=== PATIENT | female | born 1970 | race African-American/Black ===

== ENCOUNTER 2021-02-25 11:36 | Inpatient (IN) | payer OTHER ==
[2021-02-25] MEDS ORDERED: Furosemide 40 MG/4 ML VIAL ONE (12:10)
[2021-02-25 12:41] LABS: ALT (SGPT) 10 U/L (8-55); AST (SGOT) 16 U/L (5-34); Albumin 3.4 g/dL (3.5-5.0); Alkaline Phosphatase 80 U/L (40-110); Anion Gap 12 mmol/L (10-20); BUN (Urea Nitrogen) 37 mg/dL (7.0-18.7); Calc. Creatinine Clearance 0 mL/min (70-130); Calcium 8.3 mg/dL (7.8-10.44); Carbon Dioxide 33 mmol/L (22-29); Chloride 100 mmol/L (98-107); Globulin 3.7 g/dL (2.4-3.5); Glucose 104 mg/dL (70-105); Potassium 4.5 mmol/L (3.5-5.1); Protein, Total 7.1 g/dL (6.0-8.3); Sodium 140 mmol/L (136-145)
[2021-02-25 12:41] LABS: Actual Bicarbonate (HCO3a) 33.3 mEq/L (22-28); Base Excess (BEa) 4.3 mEq/L (-2.0 to +3.0); CO2 Tension 72.6 mmHg (35.0-45.0); Calcium, Ionized (arterial) 1.21 mmol/L (1.12-1.30); Carboxyhemoglobin (COHb) 2.2 gm% (0.0-3.0); Hemoglobin (Hb) 13.3 g/dL (12.0-16.0); O2 Tension (PaO2), arterial 84.3 mmHg (80.0-100.0); Potassium - ABG Lab 4.3 mmol/L (3.70-5.30); Puncture Site RBA; pH, Arterial 7.28 (7.35-7.45)
[2021-02-25 12:45] LABS: Hemoglobin 12.3 g/dL (12.0-15.5); Mean Corpuscular HGB CONC 25.3 g/dL (32.0-36.0); Mean Corpuscular Hemoglobin 20.7 pg (27.0-33.0); Mean Platelet Volume 8.8 fl (7.4-10.4); Platelet Count 213 10x3/uL (150-450); RBC Distribution Width 26.7 % (11.5-14.5); Red Blood Cell (RBC) Count 5.93 10x6/uL (3.90-5.03)
[2021-02-25 13:02] LABS: #Eosinphils 0.1 10x3/uL (0.0-0.5); #Monocytes 0.7 10x3/uL (0.0-1.1); #Neutrophils 3.7 10x3/uL (1.5-8.4); %Basophils 0.5 % (0.0-2.0); %Lymphocytes 25.4 % (18.0-47.0); %Monocytes 11.1 % (0.0-10.0); %Neutrophils 61.7 % (40.0-75.0)
[2021-02-25 13:03] LABS: Platelet Morphology Comment Appears Adequate
[2021-02-25 13:06] LABS: Anisocytosis MODERATE=16-30 cells (100X) (0-5/hpf); Macrocytosis SLIGHT = 6-15 cells (100X) (0-5/hpf); Microcytosis SLIGHT = 6-15 cells (100X) (0-5/hpf); Target Cells SLIGHT = 2-5 cells (100X) (0-1/hpf)
[2021-02-25 13:13] LABS: SARS-CoV-2 NAA Rapid Test Not Detected (NotDetected)
[2021-02-25] MEDS ORDERED: Dextrose 50% Abboject 50 ML SYRINGE SLOW IVP PRN (14:19)
[2021-02-25] MEDS ORDERED: HumaLOG 300 UNITS/3 ML VIAL SC PRN ×2 (14:19)
[2021-02-25] MEDS ORDERED: Dextrose 5% in Water 1,000 ML IV PRN (14:19)
[2021-02-25] MEDS ORDERED: Metolazone 5 MG TAB PO SCH (15:30)
[2021-02-25] MEDS ORDERED: Furosemide 40 MG/4 ML VIAL IVP SCH (16:00)
[2021-02-25] MEDS ORDERED: Metolazone 2.5 MG TAB PO SCH (16:15)
[2021-02-25 19:30] LABS: Base Excess (BEa) 3.8 mEq/L (-2.0 to +3.0); CO2 Tension 65.8 mmHg (35.0-45.0); Calcium, Ionized (arterial) 1.18 mmol/L (1.12-1.30); Hemoglobin (Hb) 13.3 g/dL (12.0-16.0); O2 Tension (PaO2), arterial 100.2 mmHg (80.0-100.0); Potassium - ABG Lab 4.2 mmol/L (3.70-5.30); Puncture Site LRA; pH, Arterial 7.31 (7.35-7.45)
[2021-02-25] MEDS: Atorvastatin Calcium 20 MG TAB PO SCH (21:50)
[2021-02-26] MEDS ORDERED: diphenhydrAMINE 50 MG/ML VIAL IVP SCH (03:30)
[2021-02-26 04:36] LABS: Cardiac Risk 3.1 (Less than 4.5); Cholesterol 85 mg/dl (< 200 Desired); HDL Cholesterol 27 mg/dL (>60 Neg Risk); LDL Cholesterol, Calculated 47 mg/dL; Triglycerides 55 mg/dL (Less than 150); Uric Acid 8.5 mg/dL (2.6-6.0)
[2021-02-26 05:06] LABS: #Eosinphils 0.1 10x3/uL (0.0-0.5); #Monocytes 0.5 10x3/uL (0.0-1.1); #Neutrophils 3.1 10x3/uL (1.5-8.4); %Basophils 0.4 % (0.0-2.0); %Eosinophils 1.7 % (0.0-6.0); %Lymphocytes 19.4 % (18.0-47.0); %Neutrophils 67.1 % (40.0-75.0); Hemoglobin 12.2 g/dL (12.0-15.5); Mean Corpuscular HGB CONC 25.3 g/dL (32.0-36.0); Mean Corpuscular Hemoglobin 20.9 pg (27.0-33.0); Mean Corpuscular Volume 82.7 fl (81.6-98.3); Mean Platelet Volume 9.6 fl (7.4-10.4); Platelet Count 197 10x3/uL (150-450); RBC Distribution Width 26.4 % (11.5-14.5); Red Blood Cell (RBC) Count 5.84 10x6/uL (3.90-5.03); White Blood Cell (WBC) Count 4.7 10x3/uL (3.5-10.5)
[2021-02-26] MEDS: Furosemide 40 MG/4 ML VIAL SLOW IVP SCH ×2 (05:49→13:44)
[2021-02-26] MEDS ORDERED: Furosemide 40 MG/4 ML VIAL SLOW IVP SCH (06:00)
[2021-02-26] MEDS ORDERED: Enoxaparin Sodium 30 MG/0.3 ML SYRINGE ONE (07:11)
[2021-02-26] MEDS ORDERED: Metolazone 5 MG TAB PO SCH (08:30)
[2021-02-26] MEDS: Metolazone 2.5 MG TAB PO SCH (08:39)
[2021-02-26] MEDS: Famotidine 20 MG TAB PO SCH (08:40)
[2021-02-26] MEDS: Enoxaparin Sodium 30 MG/0.3 ML SYRINGE SC SCH (08:40)
[2021-02-26] MEDS: Allopurinol 100 MG TAB PO SCH (08:40)
[2021-02-26] MEDS: Aspirin Chewable 81 MG TAB PO SCH (08:40)
[2021-02-26] MEDS ORDERED: Losartan 25 MG TAB PO SCH (09:00)
[2021-02-26 11:30] LABS: Hemoglobin A1c 6.1 % (4.0-6.0)
[2021-02-26 11:58] LABS: Potassium, Urine 21.7 mmol/L
[2021-02-26 18:35] LABS: ALV-art Gradient 77.505 mmHg (0-20); Actual Bicarbonate (HCO3a) 37.9 mEq/L (22-28); Base Excess (BEa) 7.8 mEq/L (-2.0 to +3.0); CO2 Tension 85.9 mmHg (35.0-45.0); Carboxyhemoglobin (COHb) 2.2 gm% (0.0-3.0); Hemoglobin (Hb) 13.1 g/dL (12.0-16.0); O2 Tension (PaO2), arterial 71.8 mmHg (80.0-100.0); Potassium - ABG Lab 4.2 mmol/L (3.70-5.30); Puncture Site RBA; pH, Arterial 7.26 (7.35-7.45)
[2021-02-26] MEDS: Atorvastatin Calcium 20 MG TAB PO SCH (20:45)
[2021-02-26] MEDS ORDERED: diphenhydrAMINE 25 MG CAP PO SCH (21:30)
[2021-02-27 05:22] LABS: ALT (SGPT) 11 U/L (8-55); AST (SGOT) 15 U/L (5-34); Albumin 3.1 g/dL (3.5-5.0); Alkaline Phosphatase 77 U/L (40-110); BUN (Urea Nitrogen) 35 mg/dL (7.0-18.7); Bilirubin, Total 1.1 mg/dL (0.2-1.2); Calc. Creatinine Clearance 87 mL/min (70-130); Calcium 8.7 mg/dL (7.8-10.44); Globulin 3.8 g/dL (2.4-3.5); Glucose 84 mg/dL (70-105); Protein, Total 6.9 g/dL (6.0-8.3)
[2021-02-27 05:29] LABS: Anion Gap 14 mmol/L (10-20); Carbon Dioxide 36 mmol/L (22-29); Chloride 95 mmol/L (98-107); Potassium 4.4 mmol/L (3.5-5.1); Sodium 141 mmol/L (136-145)
[2021-02-27] MEDS: Furosemide 40 MG/4 ML VIAL SLOW IVP SCH ×2 (05:57→14:26)
[2021-02-27 06:27] LABS: #Eosinphils 0.1 10x3/uL (0.0-0.5); #Monocytes 0.5 10x3/uL (0.0-1.1); #Neutrophils 2.9 10x3/uL (1.5-8.4); %Basophils 0.6 % (0.0-2.0); %Eosinophils 2.5 % (0.0-6.0); %Lymphocytes 25.1 % (18.0-47.0); %Monocytes 10.6 % (0.0-10.0); %Neutrophils 60.8 % (40.0-75.0); Hemoglobin 12.4 g/dL (12.0-15.5); Mean Corpuscular HGB CONC 25.1 g/dL (32.0-36.0); Mean Corpuscular Hemoglobin 20.8 pg (27.0-33.0); Mean Corpuscular Volume 82.9 fl (81.6-98.3); Mean Platelet Volume 9.2 fl (7.4-10.4); Platelet Count 195 10x3/uL (150-450); RBC Distribution Width 26.5 % (11.5-14.5); Red Blood Cell (RBC) Count 5.97 10x6/uL (3.90-5.03); White Blood Cell (WBC) Count 4.7 10x3/uL (3.5-10.5)
[2021-02-27 06:28] LABS: Anisocytosis MARKED = >30 cells (100X) (0-5/hpf)
[2021-02-27 06:29] LABS: Microcytosis SLIGHT = 6-15 cells (100X) (0-5/hpf); Poikilocytosis SLIGHT = 6-15 cells (100X) (0-5/hpf)
[2021-02-27 06:30] LABS: Hypochromia SLIGHT = 6-15 cells (100X) (0-5/hpf)
[2021-02-27 06:37] LABS: Macrocytosis MARKED = >30 cells (100X) (0-5/hpf); Ovalocytes SLIGHT = 2-5 cells (100X) (0-1/hpf); Target Cells SLIGHT = 2-5 cells (100X) (0-1/hpf)
[2021-02-27 06:38] LABS: Large Platelets SLIGHT; Platelet Clumps SLIGHT
[2021-02-27 06:40] LABS: Platelet Morphology Comment Appears Adequate
[2021-02-27] MEDS: Enoxaparin Sodium 30 MG/0.3 ML SYRINGE SC SCH (08:43)
[2021-02-27] MEDS: Metolazone 2.5 MG TAB PO SCH (08:46)
[2021-02-27] MEDS: Famotidine 20 MG TAB PO SCH (08:46)
[2021-02-27] MEDS: Allopurinol 100 MG TAB PO SCH (08:46)
[2021-02-27] MEDS: Aspirin Chewable 81 MG TAB PO SCH (08:46)
[2021-02-27 09:04] LABS: Actual Bicarbonate (HCO3a) 42.2 mEq/L (22-28); Base Excess (BEa) 12.1 mEq/L (-2.0 to +3.0); CO2 Tension 87.6 mmHg (35.0-45.0); Calcium, Ionized (arterial) 1.27 mmol/L (1.12-1.30); Carboxyhemoglobin (COHb) 1.8 gm% (0.0-3.0); Hemoglobin (Hb) 13.1 g/dL (12.0-16.0); O2 Tension (PaO2), arterial 91.2 mmHg (80.0-100.0); Potassium - ABG Lab 4.2 mmol/L (3.70-5.30); Puncture Site RRA; RapidComm Collect By EA
[2021-02-27] MEDS: Atorvastatin Calcium 20 MG TAB PO SCH (20:18)
[2021-02-28] MEDS: Aspirin Chewable 81 MG TAB PO SCH (08:22)
[2021-02-28] MEDS: Enoxaparin Sodium 30 MG/0.3 ML SYRINGE SC SCH (08:23)
[2021-02-28] MEDS: Allopurinol 100 MG TAB PO SCH (08:23)
[2021-02-28] MEDS: Famotidine 20 MG TAB PO SCH (08:24)
[2021-02-28] MEDS: Furosemide 20 MG TAB PO SCH ×2 (08:25→15:28)
[2021-02-28] MEDS: Empagliflozin 10 MG TAB PO SCH (08:28)
[2021-02-28] MEDS: Metolazone 2.5 MG TAB PO SCH (10:18)
[2021-02-28] MEDS: Atorvastatin Calcium 20 MG TAB PO SCH (21:28)
[2021-03-01 06:10] LABS: #Eosinphils 0.1 10x3/uL (0.0-0.5); #Monocytes 0.7 10x3/uL (0.0-1.1); #Neutrophils 3.3 10x3/uL (1.5-8.4); %Basophils 0.4 % (0.0-2.0); %Eosinophils 2.2 % (0.0-6.0); %Lymphocytes 21.9 % (18.0-47.0); %Monocytes 13.3 % (0.0-10.0); Hemoglobin 11.5 g/dL (12.0-15.5); Mean Corpuscular HGB CONC 25.4 g/dL (32.0-36.0); Mean Corpuscular Hemoglobin 20.9 pg (27.0-33.0); Mean Corpuscular Volume 82.2 fl (81.6-98.3); Platelet Count 187 10x3/uL (150-450); RBC Distribution Width 25.2 % (11.5-14.5); White Blood Cell (WBC) Count 5.4 10x3/uL (3.5-10.5)
[2021-03-01 06:18] LABS: BUN (Urea Nitrogen) 27 mg/dL (7.0-18.7); Calc. Creatinine Clearance 106 mL/min (70-130); Calcium 9.2 mg/dL (7.8-10.44); Glucose 87 mg/dL (70-105)
[2021-03-01] MEDS: Acetaminophen 325 MG TAB PO PRN ×2 (06:24→21:07)
[2021-03-01 06:25] LABS: Anion Gap 19 mmol/L (10-20); Carbon Dioxide 37 mmol/L (22-29); Chloride 88 mmol/L (98-107); Potassium 4.2 mmol/L (3.5-5.1); Sodium 140 mmol/L (136-145)
[2021-03-01] MEDS: Aspirin Chewable 81 MG TAB PO SCH (09:31)
[2021-03-01] MEDS: Furosemide 20 MG TAB PO SCH ×2 (09:31→19:31)
[2021-03-01] MEDS: Allopurinol 100 MG TAB PO SCH (09:31)
[2021-03-01] MEDS: Famotidine 20 MG TAB PO SCH (09:31)
[2021-03-01] MEDS: Enoxaparin Sodium 30 MG/0.3 ML SYRINGE SC SCH (09:32)
[2021-03-01] MEDS: Empagliflozin 10 MG TAB PO SCH (10:17)
[2021-03-01] MEDS: Atorvastatin Calcium 20 MG TAB PO SCH (21:01)
[2021-03-01] MEDS: diphenhydrAMINE 25 MG CAP PO PRN (21:07)
[2021-03-02 00:30] LABS: Bilirubin Neg (Negative); Blood, Urine 10 (Negative); Clarity Clear (Clear); Glucose, Urine (Dipstick) 100 mg/dL (Negative); Ketone, Urine Negative (Negative); Leukocyte Negative (Negative); Nitrite Positive (Negative); Protein, Urine (Dipstick) Negative (Neg-Trace); Specific Gravity, Urine 1.005 (1.002-1.036); Urobilinogen Normal mg/dL (Less than 2)
[2021-03-02 05:45] VITALS: BMI 53.8
[2021-03-02 06:21] LABS: #Eosinphils 0.1 10x3/uL (0.0-0.5); #Monocytes 0.6 10x3/uL (0.0-1.1); #Neutrophils 2.9 10x3/uL (1.5-8.4); %Basophils 0.7 % (0.0-2.0); %Lymphocytes 15.9 % (18.0-47.0); %Monocytes 13.6 % (0.0-10.0); %Neutrophils 66.6 % (40.0-75.0); BUN (Urea Nitrogen) 23 mg/dL (7.0-18.7); Calc. Creatinine Clearance 102 mL/min (70-130); Calcium 9.3 mg/dL (7.8-10.44); Glucose 85 mg/dL (70-105); Hemoglobin 11.8 g/dL (12.0-15.5); Mean Corpuscular HGB CONC 24.4 g/dL (32.0-36.0); Mean Corpuscular Hemoglobin 20.4 pg (27.0-33.0); Mean Corpuscular Volume 83.6 fl (81.6-98.3); Mean Platelet Volume 9.7 fl (7.4-10.4); Platelet Count 210 10x3/uL (150-450); RBC Distribution Width 25.3 % (11.5-14.5); Red Blood Cell (RBC) Count 5.79 10x6/uL (3.90-5.03); White Blood Cell (WBC) Count 4.3 10x3/uL (3.5-10.5)
[2021-03-02 06:28] LABS: Anion Gap 17 mmol/L (10-20); Chloride 83 mmol/L (98-107); Potassium 3.6 mmol/L (3.5-5.1); Sodium 141 mmol/L (136-145)
[2021-03-02 06:32] LABS: Carbon Dioxide 45 mmol/L (22-29)
[2021-03-02 09:13] LABS: Clarity Clear (Clear); Glucose, Urine (Dipstick) 100 mg/dL (Negative); Ketone, Urine Negative (Negative); Leukocyte Negative (Negative); Nitrite Positive (Negative); Protein, Urine (Dipstick) Negative (Neg-Trace); Specific Gravity, Urine 1.005 (1.002-1.036); Urobilinogen Normal mg/dL (Less than 2)
[2021-03-02 09:14] LABS: Bacteria/HPF 3+ HPF (None Seen); Bilirubin Negative (Negative); Blood, Urine 10 (Negative); RBC/HPF 0-3 HPF (0-3); WBC/HPF 0-3 HPF (0-3)
[2021-03-02 09:20] LABS: Urine Culture Reflex No No
[2021-03-02] MEDS: diphenhydrAMINE 25 MG CAP PO PRN (09:21)
[2021-03-02] MEDS: Aspirin Chewable 81 MG TAB PO SCH (09:21)
[2021-03-02] MEDS: Enoxaparin Sodium 30 MG/0.3 ML SYRINGE SC SCH (09:21)
[2021-03-02] MEDS: Acetaminophen 325 MG TAB PO PRN (09:22)
[2021-03-02] MEDS: Famotidine 20 MG TAB PO SCH (09:24)
[2021-03-02] MEDS: Allopurinol 100 MG TAB PO SCH (09:24)
[2021-03-02] MEDS: Furosemide 20 MG TAB PO SCH ×2 (09:25→14:55)
[2021-03-02 10:25] LABS: Actual Bicarbonate (HCO3a) 53.8 mEq/L (22-28); Base Excess (BEa) 23.1 mEq/L (-2.0 to +3.0); Calcium, Ionized (arterial) 1.17 mmol/L (1.12-1.30); Carboxyhemoglobin (COHb) 2.4 gm% (0.0-3.0); Hemoglobin (Hb) 12.9 g/dL (12.0-16.0); O2 Tension (PaO2), arterial 53.8 mmHg (80.0-100.0); Potassium - ABG Lab 3.7 mmol/L (3.70-5.30); RapidComm Collect By CBN; pH, Arterial 7.37 (7.35-7.45)
[2021-03-02] MEDS ORDERED: Spironolactone 25 MG TAB PO SCH (11:00)
[2021-03-02] MEDS: Empagliflozin 10 MG TAB PO SCH (15:02)
[2021-03-02] MEDS: Atorvastatin Calcium 20 MG TAB PO SCH (22:58)
[2021-03-03 06:23] LABS: BUN (Urea Nitrogen) 20 mg/dL (7.0-18.7); Calc. Creatinine Clearance 108 mL/min (70-130); Calcium 9.3 mg/dL (7.8-10.44); Glucose 81 mg/dL (70-105)
[2021-03-03 06:30] LABS: Anion Gap 20 mmol/L (10-20); Chloride 81 mmol/L (98-107); Potassium 3.6 mmol/L (3.5-5.1); Sodium 142 mmol/L (136-145)
[2021-03-03 06:31] LABS: #Eosinphils 0.1 10x3/uL (0.0-0.5); #Monocytes 0.7 10x3/uL (0.0-1.1); #Neutrophils 2.8 10x3/uL (1.5-8.4); %Basophils 0.7 % (0.0-2.0); %Eosinophils 3.2 % (0.0-6.0); %Lymphocytes 17.9 % (18.0-47.0); %Monocytes 15.2 % (0.0-10.0); %Neutrophils 62.5 % (40.0-75.0); Hemoglobin 11.4 g/dL (12.0-15.5); Mean Corpuscular HGB CONC 25.1 g/dL (32.0-36.0); Mean Corpuscular Volume 83.6 fl (81.6-98.3); Mean Platelet Volume 9.8 fl (7.4-10.4); Platelet Count 182 10x3/uL (150-450); RBC Distribution Width 24.9 % (11.5-14.5); Red Blood Cell (RBC) Count 5.44 10x6/uL (3.90-5.03); White Blood Cell (WBC) Count 4.4 10x3/uL (3.5-10.5)
[2021-03-03 06:35] LABS: Carbon Dioxide 45 mmol/L (22-29)
[2021-03-03 08:55] LABS: Actual Bicarbonate (HCO3a) 56.7 mEq/L (22-28); Base Excess (BEa) 25.7 mEq/L (-2.0 to +3.0); CO2 Tension 98.2 mmHg (35.0-45.0); Calcium, Ionized (arterial) 1.21 mmol/L (1.12-1.30); Carboxyhemoglobin (COHb) 2.6 gm% (0.0-3.0); Hemoglobin (Hb) 12.8 g/dL (12.0-16.0); O2 Tension (PaO2), arterial 54.7 mmHg (80.0-100.0); Potassium - ABG Lab 3.6 mmol/L (3.70-5.30); Puncture Site RRA; pH, Arterial 7.38 (7.35-7.45)
[2021-03-03] MEDS ORDERED: AcetaZOLAMIDE 250 MG TAB PO SCH ×2 (09:00→21:00)
[2021-03-03] MEDS ORDERED: Spironolactone 25 MG TAB PO SCH (09:00)
[2021-03-03] MEDS: Allopurinol 100 MG TAB PO SCH (09:48)
[2021-03-03] MEDS: Famotidine 20 MG TAB PO SCH (09:48)
[2021-03-03] MEDS: Aspirin Chewable 81 MG TAB PO SCH (09:48)
[2021-03-03] MEDS: Acetaminophen 325 MG TAB PO PRN (09:49)
[2021-03-03] MEDS: Empagliflozin 10 MG TAB PO SCH (09:55)
[2021-03-03] MEDS: Enoxaparin Sodium 30 MG/0.3 ML SYRINGE SC SCH (09:55)
[2021-03-03] MEDS ORDERED: Furosemide 40 MG TAB PO SCH (14:00)
[2021-03-03 16:18] VITALS: BP 134/74; TEMP 97.4
[2021-03-06 14:43] LABS: ANA Symphony (Qualitative) Negative (Negative); ANA Symphony (Quantitative) 0.3 Ratio (< 0.7 Negative); CCP IgG Antibody 2.7 EliAU/mL (<7 Negative); EliA RAS New Method **** NEW METHOD ****; Rheumatoid Factor IgA Antibody 4.1 IU/mL (<14 Negative); Rheumatoid Factor IgM Antibody 0.6 IU/mL (<3.5 Negative); dsDNA IgG Antibody 0.9 IU/mL (<10 Negative)
== END 2021-03-03 17:08 | disposition short-term general hospital (02) | DRG 291 ==
LOC: CSHERS 11:36 → SUATTDRO 11:36 → CSHICU 15:27 → CSHTELE 02-28 12:00
PROVIDERS: ADMIT Family Medicine; ATTEND Family Medicine
PROC: 5A09457 Assistance with Respiratory Ventilation, 24-96 Consecutive Hours, Continuous Positive Airway Pressure (ICD-10-PCS; principal; 2021-02-25)
DX: I13.0 Hypertensive heart and chronic kidney disease with heart failure and stage 1 through stage 4 chronic kidney disease, or unspecified chronic kidney disease (principal); I50.43 Acute on chronic combined systolic (congestive) and diastolic (congestive) heart failure; J96.22 Acute and chronic respiratory failure with hypercapnia; J96.21 Acute and chronic respiratory failure with hypoxia; E66.2 Morbid (severe) obesity with alveolar hypoventilation; Z68.43 Body mass index [BMI] 50.0-59.9, adult; E87.3 Alkalosis; E87.2 Acidosis; Z20.822 Contact with and (suspected) exposure to COVID-19; N18.9 Chronic kidney disease, unspecified; E11.22 Type 2 diabetes mellitus with diabetic chronic kidney disease; M10.9 Gout, unspecified; J45.909 Unspecified asthma, uncomplicated; Z87.891 Personal history of nicotine dependence; I83.019 Varicose veins of right lower extremity with ulcer of unspecified site; I27.29 Other secondary pulmonary hypertension; E55.9 Vitamin D deficiency, unspecified; D63.1 Anemia in chronic kidney disease; Z86.16 Personal history of COVID-19
CPT/HCPCS: 0240U; 36415; 36416; 36600; 71045; 76770; 78451; 80048; 80053; 80061; 81001; 81003; 82570; 82805; 83036; 83520; 83735; 83880; 84100; 84133; 84156; 84300; 84443; 84484; 84550; 85025; 85379; 86038; 86200; 86225; 87040; 87077; 87086; 87186; 93005; 93306; 93970; 94660; 94760; 96374; A9540; J1650; J1940; Q0163